=== PATIENT | female | born 1990 | race African-American/Black ===

== ENCOUNTER 2017-03-28 11:35 | Inpatient (IN) | payer MEDICAID, OTHER ==
[~2017-03-28] VITALS: Ht 157.5 cm; Wt 83.5 kg
--- NOTE | 2017-03-28 11:35 | NUR ---
Patient was BIBA and taken to bed 03 via gurney per EMS.
[2017-03-28 11:39] VITALS: BP 118/69
--- NOTE | 2017-03-28 11:40 | NUR ---
26/F BIBA FROM FIELD FOR GENERAL WEAKNESS,URINE INCONTINENCE, AWAKE BUT CONFUSED ON ARRIVAL. PT DENIES TO HEAR VOICES OR TO HURT HERSELF OR OTHER. DENIES N/V/D; SKIN IS PINK/WARM/DRY; AAOX3 WITH EVEN AND STEADY GAIT; LUNGS CLEAR BL; HR EVEN AND REGULAR; PT DENIES ANY FEVER, CP, SOB, OR COUGH AT THIS TIME; PATIENT STATES PAIN OF 0/10 AT THIS TIME; PATIENT POSITIONED FOR COMFORT; HOB ELEVATED; BEDRAILS UP X2; BED DOWN. ER MD MADE AWARE OF PT STATUS.
--- NOTE | 2017-03-28 11:44 | NUR ---
Patrick figueroa in [facility] - 03/28/17 at [address] Grossman evaluating patient at bedside.
[2017-03-28] MEDS ORDERED: ONDANSETRON 4 MG ODT PO ONE (11:45)
--- NOTE | 2017-03-28 11:51 | NUR ---
Dr. Grossman evaluating patient at bedside.
[2017-03-28] MEDS ORDERED: NACL 0.9% 1,000 ML IV SCH (11:58)
[2017-03-28] MEDS ORDERED: ARIPiprazole 10 MG TAB PO SCH (12:00)
[2017-03-28] MEDS ORDERED: BENZTROPINE 2 MG/2 ML AMP IVP ONE (12:00)
[2017-03-28] MEDS ORDERED: LORazepam 2 MG/ML VIAL IVP ONE (12:00)
[2017-03-28] MEDS ORDERED: ONDANSETRON 4 MG/2 ML VIAL IVP ONE ×2 (12:00→14:40)
--- NOTE | 2017-03-28 12:00 | NUR ---
PT HAS DIARRHEA; WATERY STOOL 1 TIMES ; [address] PENG NOTIFIED; AWARE
--- NOTE | 2017-03-28 12:40 | NUR ---
MED ARIPIPRAZOLE 10 MG 1 TAB PO GIVEN.
--- NOTE | 2017-03-28 13:00 | NUR ---
Patient appears to be resting comfortably in bed. Vital Signs within normal limits. Respirations even and unlabored.WILL CONTINUE TO MONITOR.
[2017-03-28] MEDS ORDERED: DIPHENOXYLATE /ATROPINE 2.5 MG TAB PO ONE (14:35)
[2017-03-28] MEDS ORDERED: NACL 0.9% 1,000 ML IV ONE (14:35)
--- NOTE | 2017-03-28 14:35 | NUR ---
PT HAD N/V & DIARRHEA 2 TIMES ; FERCHO RIVAS NOTIFIED. Addendum: 03/28/17 at 1516 by [email or web address] 0.9 NSS 1000 ML IV WIDE OPEN VIA RAC
[2017-03-28] MEDS ORDERED: BENZTROPINE MESY2 MG PO (15:19)
[2017-03-28] MEDS ORDERED: ABILIFY15 M1 PO (15:19)
[2017-03-28] MEDS ORDERED: RESTORIL30 MG PO (15:19)
[2017-03-28] MEDS ORDERED: TEMAZEPAM 15 MG CAP PO PRN (15:45)
[2017-03-28] MEDS ORDERED: ONDANSETRON 4 MG/2 ML VIAL IVP PRN (15:45)
[2017-03-28] MEDS ORDERED: ACETAMINOPHEN 325 MG TAB PO PRN (15:45)
[2017-03-28] MEDS ORDERED: LORazepam 2 MG/ML VIAL IVP PRN (15:45)
[2017-03-28] MEDS ORDERED: HYDROcodone/APAP 5/325 MG 1 TAB TAB PO PRN (15:45)
--- NOTE | 2017-03-28 15:59 | NUR ---
Patient will be admitted to care of DR Yoselin WELCH . Admited to MS. Will go to [id number]. Belongings list completed. Report to TREVOR DEAN.
--- NOTE | 2017-03-28 16:30 | NUR ---
RECEIVED NEW ADMIT FROM ER UNDER THE CARE OF DR YURI Belle WITH A DX OF DIARRHEA AND VOMITING. PATIENT AWAKE A/OX4 NO S/S OF RESP DISTRESS NOTED ABLE TO MAKE NEEDS KNOWN. NO NAUSEA OR VOMITING AT THIS TIME. IV SITE RIGHT AC GAUGE 20 INTACT AND PATENT. UNIT ORIENTATION GIVEN , SAFETY HAS BEEN TAUGHT. PLAN OF CARE DISCUSSED WITH THE PATIENT ,VITALS STABLE WILL CONTINUE TO MONITOR.
[2017-03-28 16:37] VITALS: BP 102/57
[2017-03-28] MEDS: DEXT 5% /NACL 0.9% 1,000 ML IV SCH (17:27)
--- NOTE | 2017-03-28 19:30 | NUR ---
ATE DINNER GOOD APPETITE . SAFETY MAINTAINED CALL LIGHT IN REACH STABLE CONDITION. ENDORSE THE CARE TO KARINA MURRAY
--- NOTE | 2017-03-28 19:31 | NUR ---
RECEIVED REPORT FROM DAY RN FOR CONTINUITY OF CARE. PATIENT IS A&OX3/4, DISCUSSED PLAN OF CARE WITH PATIENT ABLE TO VERBALIZE UNDERSTANDING. SHIFT ASSESSMENT DONE, VS TAKEN, STABLE. NO S/S OF RESPIRATORY DISTRESS NOTED ON ROOM AIR. PATIENT DENIES PAIN AT THIS TIME. IV TO RT AC PATENT AND INFUSING FLUIDS WELL. SAFETY PRECAUTIONS ENFORCED. CALL LIGHT WITHIN REACH. WILL CONTINUE TO MONITOR.
[2017-03-28 20:00] VITALS: BP 107/54
--- NOTE | 2017-03-28 21:00 | NUR ---
PT ASKED TO USE BEDPAN DUE TO WEAKNESS, HAD LOOSE YELLOW BOWEL MOVEMENT. DENIES ANY NAUSEA OR DISCOMFORT. CALL LIGHT WITHIN REACH, WILL CONTINUE TO MONITOR.
--- NOTE | 2017-03-28 22:00 | NUR ---
PATIENT SLEEPING AT THIS TIME, NO S/S OF DISTRESS OR DISCOMFORT NOTED. WILL CONTINUE TO MONITOR.
[2017-03-29] VITALS: BP 110/60
--- NOTE | 2017-03-29 00:30 | NUR ---
VITAL SIGNS TAKEN, STABLE. PATIENT IV TO LT AC WAS DISLODGED, CANNULA INTACT. NEW IV INSERTION TO LT HAND PATENT AND INFUSING FLUIDS WELL. PATIENT ABLE TO EAT AND TOLERATE FOOD. CALL LIGHT WITHIN REACH.
[2017-03-29] MEDS: DEXT 5% /NACL 0.9% 1,000 ML IV SCH (01:34)
--- NOTE | 2017-03-29 02:15 | NUR ---
PATIENT AWAKE, RESTING IN BED. NO S/S OF DISTRESS OR DISCOMFORT NOTED. CALL LIGHT WITHIN REACH, WILL CONTINUE TO MONITOR.
--- NOTE | 2017-03-29 04:15 | NUR ---
PATIENT IS RESTLESS, REQUESTS IV FLUIDS TO BE DISCONNECTED AT THIS TIME TO SLEEP. VITAL SIGNS STABLE, WILL CONTINUE TO MONITOR.
--- NOTE | 2017-03-29 07:25 | NUR ---
ENDORSED PATIENT TO DAY RN FOR CONTINUITY OF CARE, PATIENT IS IN STABLE CONDITION.
--- NOTE | 2017-03-29 07:26 | NUR ---
RECEIVED REPORT FROM NIGHT NURSE AT PT BEDSIDE. PT RESTING IN BED. DENIES DISCOMFORT. NO S/S OF RESPIRATORY DISTRESS. DENIES N/V/D AT THIS TIME. CALL LIGHT WITHIN REACH. AAOX4. SAFETY MEASURES IN PLACE. WILL CONTINUE TO MONITOR.
[2017-03-29 08:00] VITALS: BP 119/64
--- NOTE | 2017-03-29 08:51 | NUR ---
PATIENT HAS BEEN SCREENED AND CATEGORIZED HIGH NUTRITION RISK. PATIENT WILL BE SEEN WITHIN 1-2 DAYS OF ADMISSION. 03/29/17-03/30/[address]
[2017-03-29] MEDS ORDERED: BENZTROPINE 1 MG TAB PO SCH (09:00)
[2017-03-29] MEDS ORDERED: ARIPiprazole 10 MG TAB PO SCH (09:00)
--- NOTE | 2017-03-29 10:35 | NUR ---
PATIENT RESTING IN BED. ALL NEEDS MET. CALL LIGHT WITHIN REACH.
--- NOTE | 2017-03-29 12:47 | NUR ---
03/29/17 RD INITIAL ASSESSMENT COMPLETED PLEASE REFER TO NUTRITION ASSESSMENT UNDER CARE ACTIVITY FOR ESTIMATED NUTRITIONAL NEEDS. 1. CONTINUE REGULAR DIET 2. RD TO FOLLOW-UP 3-5 DAYS; MODERATE RISK ALONZO PHAM RD
[2017-03-29] MEDS ORDERED: BENZTROPINE MESY2 MG PO (13:55)
[2017-03-29] MEDS ORDERED: RESTORIL30 MG PO (13:55)
[2017-03-29] MEDS ORDERED: ABILIFY15 M1 PO (13:55)
--- NOTE | 2017-03-29 14:20 | NUR ---
PATIENT SEEN BY DR. WELCH AT PT BEDSIDE. PT MEDICATION TEACHING GIVEN WITH PRESCRIPTIONS, VERBALIZED UNDERSTANDING. PT FOLLOW UP TEACHING AND PLAN OF CARE REGARDING APPOINTMENTS TO FOLLOW UP. PT INSTRUCTED WITH CHEF INSTRUCTOR ON HOMELESS [employer] RESOURCES AND INFORMATIONS REGARDING JAIL.
--- NOTE | 2017-03-29 15:32 | NUR ---
Social Service Note: Patient's nurse Nicholas and I met with patient at bedside. I provided her with community resources, including a list of homeless shelters, room and boards, sober living facilities, food dooley, and other services/programs for individuals with no income or low income. I educated her about community resources. Per patient, she is currently homeless and stated she will make her own living arrangements using the community resources I provided her with. She stated she currently does not have an income at this time. She stated her [employer] application is pending, stated she needs to provide [employer] office with a copy of her drivers license or ID. I encouraged her to do turn it in as soon as possible. She verbalized understanding and stated she did not have any questions or concerns.
--- NOTE | 2017-03-29 16:00 | NUR ---
PATIENT DISCHARGE INSTRUCTIONS GIVEN, VERBALIZED UNDERSTANDING. AAOX4. AMBULATORY. NO S/S OF ACUTE DISTRESS. PATIENT WHEELED TO FRONT LOBBY.
== END 2017-03-29 16:00 | disposition home or self-care (01) | DRG 750 ==
LOC: MED 11:35 → MTU 15:49
PROVIDERS: ADMIT Preventive Medicine Preventive Medicine/Occupational Environmental Medicine; ATTEND Preventive Medicine Preventive Medicine/Occupational Environmental Medicine
DX: F20.9 Schizophrenia, unspecified (principal); E83.52 Hypercalcemia; D64.9 Anemia, unspecified; D72.829 Elevated white blood cell count, unspecified; R32 Unspecified urinary incontinence; R19.7 Diarrhea, unspecified; R73.9 Hyperglycemia, unspecified; R11.10 Vomiting, unspecified; Z79.899 Other long term (current) drug therapy; Z91.14 Patient's other noncompliance with medication regimen